=== PATIENT | male | born 1955 | race Caucasian/White ===

== ENCOUNTER 2019-05-15 06:58 | Day surgery (SDC) | payer MEDICARE ==
--- NOTE | 2019-05-13 15:12 | HP ---
DATE OF SURGERY: 05/15/2019 ADMISSION DIAGNOSIS: Anemia. Rectal bleeding. ANTICIPATED PROCEDURE: Colonoscopy. HISTORY OF PRESENT ILLNESS: PAST MEDICAL HISTORY: ALLERGIES: PENICILLILN. MEDICATIONS: Meloxicam, amlodipine. PAST SURGICAL HISTORY: C-spine. Lumbar spine. Appendix. SOCIAL HISTORY: Two packs a day. ETOH occasional. FAMILY HISTORY: Negative. PHYSICAL EXAMINATION: VITAL SIGNS: Normal. CHEST: Clear. COR: Regular. ASSESSMENT AND PLAN: Colonoscopy for anemia.
[2019-05-15] MEDS ORDERED: Lactated Ringers 1,000 ML IV SCH (07:00)
[2019-05-15] MEDS ORDERED: Lactated Ringers 1,000 ML IV ONE (07:06)
[2019-05-15] MEDS ORDERED: DIPRIVAN 200 MG/20 ML IV ONE ×2 (09:10→09:23)
[2019-05-15] MEDS ORDERED: ROBINUL ONE (09:31)
[2019-05-15 10:26] LABS: Absolute Neutrophil Ct (ANC) 3.72 (1.4-6.9); BASOPHIL % 0.3 % (0.0-0.4); Basophil (Absolute #) 0.02 (0-0.4); Eosinophil (Absolute #) 0.06 (0-0.5); Hematocrit 37.1 % (42-50); Hemoglobin 12.1 gm/dl (12.5-18.0); Lymphocyte (Absolute #) 1.75 (1.0-4.6); Lymphocytes % 28.7 % (24.0-44.0); Mean Cell Volume 92.8 fl (78-100); Mean Corpuscular Hemoglobin 30.3 pg (26-32); Mean Corpuscular Hgb Concent. 32.6 g/dl (32-36); Mean Platelet Volume 10.9 fl (7.5-11.0); Monocyte (Absolute #) 0.54 (0.0-1.3); Monocytes % 8.9 % (0.0-12.0); Neutrophil % 61.1 % (36.0-66.0); Platelet Count 245 K/mm3 (150-450); Red Cell Distribution Width 13.3 % (11.5-14.0); White Blood Count 6.1 K/mm3 (4.0-10.5)
[2019-05-15 10:41] VITALS: BP 126/74; PULSE 65; O2SAT 100
[2019-05-15 10:41] LABS: Calcium 9.1 mg/dL (8.4-10.2); Creatinine 1 1.74 mg/dL (0.66-1.25); Potassium 4.5 mmol/L (3.5-5.1)
--- NOTE | 2019-05-15 15:28 | OP ---
SURGERY DATE/TIME: 05/15/201910 PREOPERATIVE DIAGNOSIS: Anemia. POSTOPERATIVE DIAGNOSES: 1) The patient has a congenital gastric accessory pancreatic ampulla but there are really no abnormalities other than grade II/III gastroesophageal reflux disease. 2) Colonoscopy complete to cecum with hot polypectomy of three rectal polyps 8 mm, 6 mm, 6 mm. INDICATION: The patient has anemia. PROCEDURE: Colonoscopy complete to cecum. SURGEON: Mason Vail M.D. ANESTHESIA: MAC. COMPLICATIONS: None. CONDITION: Stable. INDICATION: The patient has anemia. DESCRIPTION OF PROCEDURE: Taken to the endoscopy suite. Scope introduced. Esophagus normal down to gastroesophageal junction. Grade II/III gastroesophageal reflux disease. No hiatal hernia. Fundus and body normal. In the antrum posterior superior wall there was accessory pancreatic gastric ampulla which did have an opening even. There was bile spitting out of a smaller ampulla in the second portion of duodenum. I believe he has two pancreatic ducts basically or subpancreatic and bile duct. There are no signs of ulcer. Exam was satisfactory. Scope withdrawn. Anal rectal examination slightly patelous anus. Prostate is large but without specific lesion. Scope advanced to the cecum. On circumferential withdrawal there are three polyps in the rectum 6 mm, 8 mm, 6 mm taken with hot biopsy forceps. There was severe diverticulosis of the colon. Findings discussed with the family in the waiting room. PLAN: Follow up of the colon in three years.
== END 2019-05-15 10:48 | disposition home or self-care (01) ==
LOC: SDC 06:58
PROVIDERS: ATTEND Surgery
DX: D64.9 Anemia, unspecified (principal); K21.9 Gastro-esophageal reflux disease without esophagitis; K62.1 Rectal polyp
CPT/HCPCS: 36415; 80048; 85025; 88305; J2704